=== PATIENT | male | born 1990 | race Two or more races ===

== ENCOUNTER 2020-12-10 16:07 | Emergency (ER) | payer MEDICAID ==
[~2020-12-10] VITALS: Ht 170.2 cm; Wt 86.6 kg
[2020-12-10 17:48] VITALS: BP 115/68
== END 2020-12-10 18:09 | disposition home or self-care (01) ==
LOC: ER 16:07
DX: S93.402A Sprain of unspecified ligament of left ankle, initial encounter (principal); X50.1XXA Overexertion from prolonged static or awkward postures, initial encounter; Y93.67 Activity, basketball; Y92.39 Other specified sports and athletic area as the place of occurrence of the external cause; Y99.8 Other external cause status
CPT/HCPCS: 73610

== ENCOUNTER 2021-04-08 08:12 | Emergency (ER) | payer MEDICAID ==
[~2021-04-08] VITALS: Ht 172.7 cm; Wt 87.1 kg
[2021-04-08 08:17] VITALS: BP 135/83
== END 2021-04-08 10:03 | disposition left against medical advice (07) ==
LOC: ER 08:12
DX: S93.401A Sprain of unspecified ligament of right ankle, initial encounter (principal); W18.39XA Other fall on same level, initial encounter; Y93.67 Activity, basketball; Y92.39 Other specified sports and athletic area as the place of occurrence of the external cause; Y99.8 Other external cause status
CPT/HCPCS: 73610

== ENCOUNTER 2022-12-10 09:53 | Emergency (ER) | payer MEDICAID ==
[~2022-12-10] VITALS: Ht 170.2 cm; Wt 84.2 kg
[2022-12-10 10:37] VITALS: BP 134/81; PULSE 63; RESP 18; TEMP 98.1; O2SAT 96
[2022-12-10] MEDS ORDERED: TRIA0.1O EX (10:42)
== END 2022-12-10 10:48 | disposition home or self-care (01) ==
LOC: ER 09:53
DX: L20.9 Atopic dermatitis, unspecified (principal); F12.10 Cannabis abuse, uncomplicated

== ENCOUNTER → 2023-11-28 | Outpatient (CLI) | payer MEDICAID ==
[~2023-11-28] MED LIST: TRIA0.1O EX
[2023-11-28 08:18] LABS: Urine Bacteria None Seen /hpf (None Seen)
[2023-11-28 08:26] LABS: Basophils # (auto) 0.1 10 ^3/uL (0-0.2); Red Cell Distribution Width 14.3 % (11.8-14.3)
[2023-11-28 08:27] LABS: Basophils % (auto) 1.1 % (0.0-2.0); Eosinophils # (auto) 0.3 10 ^3/uL (0-0.8); Eosinophils % (auto) 3.3 % (0.0-7.0); Hematocrit 47.3 % (41.0-53.0); Hemoglobin 16.6 g/dL (13.5-17.5); Lymphocytes # (auto) 4.3 10 ^3/uL (0.4-5.4); Lymphocytes % (auto) 41.7 % (10.0-50.0); Mean Corpuscular Hemoglobin 27.4 pg (28.0-32.0); Mean Corpuscular Volume 78.2 fL (80.0-100.0); Monocytes # (auto) 0.5 10 ^3/uL (0-1.3); Monocytes % (auto) 5.1 % (0.0-12.0); Neutrophils # (auto) 5.1 10 ^3/uL (1.6-8.6); Neutrophils % (auto) 48.8 % (37.0-80.0); Nucleated Red Blood Cells % 0.1 %; Red Blood Cells 6.05 10^6/uL (4.5-5.90); White Blood Cell 10.4 10^3/uL (4.4-10.8)
[2023-11-28 08:37] LABS: Urine Blood Negative /uL (Negative); Urine Clarity Clear (Clear); Urine Color Yellow (Yellow); Urine Mucus FEW (None Seen); Urine Protein, UAD Negative (Negative); Urine Specific Gravity 1.026 (1.001-1.035); Urine Urobilinogen Normal (Negative); Urine WBC 1 /hpf (0 - 3); Urine pH 5.5 (5.0-9.0)
[2023-11-28 08:56] LABS: Erythrocyte Sedimentation Rate 5 mm/hr (0-20)
[2023-11-28 09:37] LABS: Alanine Aminotransferase 30 U/L (7-40); Albumin 4.6 g/dL (3.2-4.8); Alkaline Phosphatase 76 U/L (46-116); Anion Gap 5 (5-15); Aspartate Aminotransferase 15 U/L (13-40); BUN/Creatinine Ratio 9.1 (10.0-20.0); Blood Urea Nitrogen 10 mg/dL (9-23); Calcium 9.5 mg/dL (8.5-10.1); Carbon Dioxide 27 mmol/L (20-30); Chloride 106 mmol/L (98-107); Cholesterol 171 mg/dL (< 200); Glucose 93 mg/dL (74-106); HDL Cholesterol 42 mg/dL (40-59); LDL Cholesterol 132 mg/dL (< 100); Potassium 4.1 mmol/L (3.5-5.1); Sodium 138 mmol/L (136-145); Triglycerides 105 mg/dL (< 150)
[2023-11-28 09:38] LABS: Bilirubin, Total 0.6 mg/dL (0.2-1.0); Total Protein 7.1 g/dL (5.7-8.2)
== END | disposition home or self-care (01) ==
LOC: LAB 08:10
PROVIDERS: ATTEND Internal Medicine
DX: M25.552 Pain in left hip (principal); Z00.00 Encounter for general adult medical examination without abnormal findings
CPT/HCPCS: 36415; 80053; 80061; 81001; 83036; 85025; 85652